=== PATIENT | male | born 1975 | race Caucasian/White ===

== ENCOUNTER → 2019-04-16 | Day surgery (SDC) | payer OTHER ==
--- NOTE | 2019-04-16 16:16 | RADIOLOGY REPORT (SQ) ---
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 FLUOROSCOPY TIME: 1.8 MINUTES OF FLUOROSCOPY WAS USED. 1 images saved to PACS. LIMITATIONS: None. PROCEDURE: Procedure, risks, benefits and alternatives explained to patient who then gave written co nsent. The right shoulder was marked and a time out was called for correct procedure verification. P osterior entry site marked using fluoroscopic guidance. Shoulder prepped and draped using sterile te chnique. Local anesthesia achieved using 1% lidocaine injection. Hypodermic needle introduced into the joint space under direct fluoroscopic visualization. Non-ionic contrast instilled to confirm intr a-articular position. Dilute gadolinium solution then injected. Needle removed and entry site covere d with sterile bandage. No immediate complications noted. TECHNIQUE: Digital images acquired during fluoroscopy and stored on PACS. Patient immediately take n to the MR suite for additional imaging. INJECTION LOCATION: Posterior right shoulder. CONTRAST TYPE AND AMOUNT: 12 mL Dotarem/Saline mixture. IMPRESSION: SUCCESSFUL NEEDLE PLACEMENT AND INJECTION FOR RIGHT SHOULDER MR ARTHROGRAM USING POSTERI OR APPROACH. COMMENT: Quality ID 145: Final reports for procedures using fluoroscopy that document radiation exp osure indices, or exposure time and number of fluorographic images (if radiation exposure indices are not available) TECHNICAL DOCUMENTATION: JOB ID: [id number] [employer]- All Rights Reserved Reading location - IP/workstation name: [email or web address] [id number]
--- NOTE | 2019-04-16 16:16 | RADIOLOGY REPORT (SQ) ---
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 FLUOROSCOPY TIME: 1.8 MINUTES OF FLUOROSCOPY WAS USED. 1 images saved to PACS. LIMITATIONS: None. PROCEDURE: Procedure, risks, benefits and alternatives explained to patient who then gave written co nsent. The right shoulder was marked and a time out was called for correct procedure verification. P osterior entry site marked using fluoroscopic guidance. Shoulder prepped and draped using sterile te chnique. Local anesthesia achieved using 1% lidocaine injection. Hypodermic needle introduced into the joint space under direct fluoroscopic visualization. Non-ionic contrast instilled to confirm intr a-articular position. Dilute gadolinium solution then injected. Needle removed and entry site covere d with sterile bandage. No immediate complications noted. TECHNIQUE: Digital images acquired during fluoroscopy and stored on PACS. Patient immediately take n to the MR suite for additional imaging. INJECTION LOCATION: Posterior right shoulder. CONTRAST TYPE AND AMOUNT: 12 mL Dotarem/Saline mixture. IMPRESSION: SUCCESSFUL NEEDLE PLACEMENT AND INJECTION FOR RIGHT SHOULDER MR ARTHROGRAM USING POSTERI OR APPROACH. COMMENT: Quality ID 145: Final reports for procedures using fluoroscopy that document radiation exp osure indices, or exposure time and number of fluorographic images (if radiation exposure indices are not available) TECHNICAL DOCUMENTATION: JOB ID: [id number] [employer]- All Rights Reserved Reading location - IP/workstation name: [email or web address] [id number]
--- NOTE | 2019-04-17 10:58 | RADIOLOGY REPORT (SQ) ---
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 TECHNIQUE: Right shoulder images acquired and stored on PACS. Oblique coronal, oblique sagittal, and axial imaging to include fat sensitive sequences as T1, water sensitive sequences as FST2/STIR, and contrast sensitive sequences as FST1. LIMITATIONS: None. FINDINGS: JOINT DISTENTION: Adequate. No loose bodies. BONE MARROW AND CORTEX: No suspicious or acute findings. AC JOINT: AC arthropathy with mild overgrowth. Associated fluid in the joint with marrow edema and m ild cysts or erosions in the distal clavicle. No aggressive lysis. Subacromial space relatively pre served. GLENOHUMERAL JOINT: Chondral thinning. Small anterior inferior glenoid subchondral cysts. ROTATOR CUFF: No suggestion of high-grade partial or full-thickness tear. No cuff muscle atrophy. M ild tendinosis and bursal surface fraying along the infraspinatus particularly. Mild posterior super ficial and deep soft tissue edema likely related to the trauma of arthrography. LABRUM AND BICEPS LABRAL COMPLEX: Irregular tear throughout the biceps anchor tracking posteriorly. Biceps tendon looks intact. INFERIOR LABRAL COMPLEX: Tear along the anterior inferior labrum. Blunting posteriorly. ADJACENT SOFT TISSUES: No regional mass or axillary adenopathy. OTHER: No other significant finding. IMPRESSION: 1. No full-thickness or high-grade partial cuff tear. 2. Superior labral tear. Biceps tendon intact. 3. Anterior inferior labral tear. 4. AC arthropathy. TECHNICAL DOCUMENTATION: JOB ID: [id number] [employer]- All Rights Reserved Reading location - IP/workstation name: [email or web address]
== END ==
LOC: RAD 14:42
PROVIDERS: ATTEND Orthopaedic Surgery Sports Medicine
DX: M75.41 Impingement syndrome of right shoulder (principal); S43.431A Superior glenoid labrum lesion of right shoulder, initial encounter; X58.XXXA Exposure to other specified factors, initial encounter; M12.811 Other specific arthropathies, not elsewhere classified, right shoulder
CPT/HCPCS: 73222; 77002; 23350; A9576